=== PATIENT | female | born 1985 | race Caucasian/White ===

== ENCOUNTER 2018-05-26 10:29 | Emergency (ER) | payer OTHER ==
[2018-05-26 10:49] VITALS: BP 144/93; TEMP 99
[2018-05-26] MEDS ORDERED: NORCO 10-325 PO STA (11:08)
[2018-05-26] MEDS ORDERED: DECADRON 4 MG/ML SDV IM STA (11:08)
[2018-05-26 11:44] LABS: URINE PREGNANCY TEST NEGATIVE (NEGATIVE)
--- NOTE | 2018-05-26 12:01 | ED.PDOC ---
General ED Provider: Dr. BENEDICTO COLON Chief Complaint: Back Pain Stated Complaint: low back pain lumbar Time Seen by Physician: 10:30 (no trauma) Mode of Arrival: Walk-In Information Source: Patient Exam Limitations: No limitations Primary Care Provider: BERNA YING Nursing and Triage Documentation Reviewed and Agree: Yes Does patient meet sepsis criteria?: No System Inflammatory Response Syndrome: Not Applicable Sepsis Protocol: For patient's 13 years and over: Temp is 96.8 and below OR 101 and greater Pulse >90 BPM Resp >20/minute Acutely Altered Mental Status Are patient's symptoms suggestive of a new infection, such as: -Pneumonia -Skin, Soft Tissue -Endocarditis -UTI -Bone, Joint Infection -Implantable Device -Acute Abdominal Infection -Wound Infection -Meningitis -Blood Stream Catheter Infection -Unknown Musculoskeletal Complaint Exam - Back Pain Complaint/Exam Mechanism of Injury: Reports: No known trauma Onset/Duration: 1 day Symptoms Are: Still present Timing: Intermittent Episodes Lasting: Hours Initial Severity: Mild Current Severity: Mild Location: Reports: Discrete (lumbar) Character: Reports: Aching, Spasmodic, Stiffness Aggravating: Reports: Movements, Lifting, Bending, Walking Alleviating: Reports: Rest, Position Associated Signs and Symptoms: Denies: Swelling, Redness, Bruising, Fever, Weakness, Numbness, Tingling, Abdominal pain, Flank pain, Bladder incontinence, Bowel incontinence, Weight loss, Pain with weight bearing Related History: Reports: Similar episode TAD Risk Factors: Reports: None Cauda Equina Risk Factors: Reports: None Epidural Abcess Risk Factors: Reports: None Related Surgical History: Reports: None Focal Tenderness: No Paraspinal Muscle Tenderness: No Paraspinal Muscle Spasm: No Scoliosis: No Lordosis: No Kyphosis: No SLR Test: Right Negative, Left Negative Hip Motion Testing Pain: Right Negative, Left Negative Focal Weakness: Present: None Focal Sensory Loss: Present: None Gait: Present: Normal Differential Diagnoses: Strain, Sprain Review of Systems - Review Of Systems Constitutional: Reports: No symptoms Eyes: Reports: No symptoms Ears, Nose, Mouth, Throat: Reports: No symptoms Respiratory: Reports: No symptoms Cardiac: Reports: No symptoms GI: Reports: No symptoms : Reports: No symptoms Musculoskeletal: Reports: Back pain Skin: Reports: No symptoms Neurological: Reports: No symptoms Endocrine: Reports: No symptoms Hematologic/Lymphatic: Reports: No symptoms All Other Systems: Reviewed and Negative Past Medical History - Past Medical History Previously Healthy: Yes Endocrine: Reports: None Cardiovascular: Reports: None Respiratory: Reports: None Hematological: Reports: None Gastrointestinal: Reports: None Genitourinary: Reports: None Neuro/Psych: Reports: Depression Musculoskeletal: Reports: None Cancer: Reports: None Last Menstrual Period: 1 month - Surgical History General Surgical History: Reports: ( x w ), Tonsillectomy, Adenoidectomy, Other (PE tubes ) - Family History Family History: Reports: None - Social History Smoking Status: Current every day smoker, Heavy tobacco smoker Hx Substance Use: No Alcohol Screening: Occasionally Physical Exam - Physical Exam Appearance: Well-appearing, No pain distress, Well-nourished Eyes: [place], EOMI, Conjunctiva clear ENT: Ears normal, Nose normal, Oropharynx normal Respiratory: Airway patent, Breath sounds clear, Breath sounds equal, Respirations nonlabored Cardiovascular: RRR, Pulses normal, No rub, No murmur GI/: Soft, Nontender, No masses, Bowel sounds normal, No Organomegaly Musculoskeletal: Normal strength, ROM intact, No edema, No calf tenderness Skin: Warm, Dry, Normal color Neurological: Sensation intact, Motor intact, Reflexes intact, Cranial nerves intact, Alert, Oriented Psychiatric: Affect appropriate, Mood appropriate Interpretation - Radiology Interpretation Radiology Interpretation By: Radiologist Radiology Results: No acute changes Re-Evaluation - Re-Evaluation Time of Re-Evaluation: 11:00 Status: Unchanged Vital Signs Stable: Yes Pain Level: 3 Appearance: NAD Lungs: Clear Skin: Warm and Dry Neuro: Alert and Oriented X3 CV: RRR - Re-Evaluation Time of Re-Evaluation: 12:02 Status: Improved Vital Signs Stable: Yes Pain Level: 2 Appearance: NAD Skin: Warm and Dry Neuro: Alert and Oriented X3 CV: RRR Physician Notification - Case Discussed Physician Notified: pmd Time of Notification: 12:03 (will follow as out pt ) Critical Care Note - Critical Care Note Total Time (mins): 0 Course - Course Hematology/Chemistry: 05/26/18 11:05 Orders, Labs, Meds: Lab Review 05/26/18 05/26/18 05/26/18 11:05 11:25 11:25 WBC 8.53 RBC 4.63 Hgb 12.6 Hct 38.5 MCV 83.2 MCH 27.2 MCHC 32.7 RDW Coeff of Su 14.7 Plt Count 305 Immature Gran % (Auto) 0.1 Neut % (Auto) 64.0 Lymph % (Auto) 29.3 [place] % (Auto) 4.8 Eos % (Auto) 0.9 Baso % (Auto) 0.9 Immature Gran # (Auto) 0.0 Neut # (Auto) 5.5 Lymph # (Auto) 2.5 [place] # (Auto) 0.4 Eos # (Auto) 0.1 Baso # (Auto) 0.1 Urine Color Yellow Urine Clarity Clear Urine pH 7.5 Ur Specific [place] 1.020 Urine Protein Negative Urine Glucose (UA) Negative Urine Ketones Negative Urine Blood Negative Urine Nitrite Negative Urine Bilirubin Negative Urine Urobilinogen 1.0 Ur Leukocyte Esterase Trace Urine Microscopic WBC 2-5 Ur Squamous Epith Cells 30-50 Urine Bacteria Trace Urine Test Negative Orders Category Date Time Status CBC W/ AUTO DIFF Stat LAB 05/26/18 11:05 Completed COMPREHENSIVE METABOLIC PANEL Stat LAB 05/26/18 11:05 Received URINALYSIS C & S IF INDICATED Stat LAB 05/26/18 11:25 Completed URINE Stat LAB 05/26/18 11:25 Completed Dexamethasone 4 mg/ml Inj [Decadron 4 mg/ml Sdv] MEDS 05/26/18 11:08 Discontinued 8 mg IM ONCE STA Hydrocodone Bit/Acetaminophen [Graham 10-325] MEDS 05/26/18 11:08 Discontinued 1 tab PO ONCE STA CT LUMBAR SPINE W/O CONTRAST Stat RADS 05/26/18 11:08 Ordered Medications Discontinued Medications Generic Name Dose Route Start Last Admin Trade Name Freq PRN Reason Stop Dose Admin Hydrocodone Bitart/Acetaminophen 1 tab 05/26/18 11:08 Graham 10-325 PO 05/26/18 11:09 ONCE STA Dexamethasone Sodium Phosphate 8 mg 05/26/18 11:08 Decadron 4 Mg/Ml Sdv IM 05/26/18 11:09 ONCE STA Vital Signs: Temp Pulse Resp BP Pulse Ox 05/26/18 10:29 99.0 F 72 20 144/93 H 97 Departure - Departure Time of Disposition: 12:03 Disposition: HOME SELF-CARE Discharge Problem: Backache Low back pain Qualifiers: Chronicity: acute Back pain laterality: midline Sciatica presence: unspecified whether sciatica present Qualified Code(s): M54.5 - Low back pain Condition: Good Pt referred to PMD for follow-up: Yes IPMP verified?: No Additional Instructions: Please call your Family Physician as soon as possible to schedule a follow-up appointment. if you can urinate, or you have urine retention, cant make use of your legs or numbness around buttocks contact your MD and return [place]. Allergies/Adverse Reactions: Allergies No Known Allergies Allergy (Verified 05/26/18 10:41) Home Medications: Ambulatory Orders 1 [No Reported Medications] 05/26/18 Disposition Discussed With: Patient
--- NOTE | 2018-05-26 12:32 | CT ---
EXAM: CT lumbar spine without contrast. HISTORY: Back pain. COMPARISON: 09/01/2012. Abdominal CT 01/03/2014. TECHNIQUE: Multiple axial images of the lumbar spine were obtained without intravenous contrast. Im ages were reformatted in the sagittal and coronal planes. FINDINGS: The normal curvature and alignment are maintained. Vertebral body and intervertebral disc heights are normal. No fracture or subluxation is seen. Facet arthropathy causes mild neural fora irma narrowing at L4-5 and moderate neural foraminal narrowing at L5-S1. No significant central can al stenosis identified. Adjacent soft tissues are unremarkable. IMPRESSION: 1. No acute abnormality of the lumbar spine. 2. Lower lumbar degenerative changes as described.
== END 2018-05-26 13:10 | disposition home or self-care (01) ==
LOC: ED 10:29
DX: M54.5 Low back pain (principal); F17.210 Nicotine dependence, cigarettes, uncomplicated
CPT/HCPCS: 36415; 80053; 81001; 81025; 85025; 96372; 99283

== ENCOUNTER 2018-08-04 12:57 | Emergency (ER) ==
[2018-08-04 13:02] VITALS: BP 104/66; TEMP 97.4; BMI 44.6
--- NOTE | 2018-08-04 15:38 | ED.PDOC ---
General ED Provider: Dr. BENEDICTO COLON Chief Complaint: Stated Complaint: about 5 weeks has had vaginal bleeding typical of a regular period today without pain Time Seen by Physician: 13:00 Mode of Arrival: Walk-In Information Source: Patient Exam Limitations: No limitations Primary Care Provider: GUSTAVO ZAMUDIO Nursing and Triage Documentation Reviewed and Agree: Yes Does patient meet sepsis criteria?: No System Inflammatory Response Syndrome: Not Applicable Sepsis Protocol: For patient's 13 years and over: Temp is 96.8 and below OR 101 and greater Pulse >90 BPM Resp >20/minute Acutely Altered Mental Status Are patient's symptoms suggestive of a new infection, such as: -Pneumonia -Skin, Soft Tissue -Endocarditis -UTI -Bone, Joint Infection -Implantable Device -Acute Abdominal Infection -Wound Infection -Meningitis -Blood Stream Catheter Infection -Unknown Complaint Exam - UTI Female Complaint/Exam : 3 Para: 2 Hx Total # of Abortions (Spontaneous & Elective): 0 - Complaint/Exam Onset/Duration: today Symptoms Are: Resolved Timing: Intermittent Initial Severity: Mild Current Severity: None Location of Pain: Reports: None Character: Denies: Sharp, Colicky, Burning, Constant pressure, Dull, Cramping, Tearing, Dark urine, Cloudy urine, Bloody urine Aggravating: Reports: None Alleviating: Reports: None Associated Signs and Symptoms: Reports: Vaginal bleeding. Denies: Diaphoresis, Back pain, Fever, Hematuria, Dysuria, Constipation, Blood in stool, Rectal pain , Appetite change, Nausea, Vomiting, Decreased urine output, Increased urine frequency, Increased thirst, Decreased activity, Lethargy, Abdominal Pain, Bubble bath use, Vaginal discharge, Genital swelling, Genital blisters, Retained foreign body Ectopic Risk Factors: Reports: None Ovarian Torsion Risk Factors: Reports: None Surgical Obstruction Risk Factors: Reports: None RH Status: Unknown Related Surgical History: Reports: None Abdominal Findings: Present: None Differential Diagnoses: Other (vaginal bleed ) Review of Systems - Review Of Systems Constitutional: Reports: No symptoms Eyes: Reports: No symptoms Ears, Nose, Mouth, Throat: Reports: No symptoms Respiratory: Reports: No symptoms Cardiac: Reports: No symptoms GI: Reports: No symptoms : Reports: Other (VAGINAL BLEED) Musculoskeletal: Reports: No symptoms Skin: Reports: No symptoms Neurological: Reports: No symptoms Endocrine: Reports: No symptoms Hematologic/Lymphatic: Reports: No symptoms All Other Systems: Reviewed and Negative Past Medical History - Past Medical History Previously Healthy: Yes Endocrine: Reports: None Cardiovascular: Reports: None Respiratory: Reports: None Hematological: Reports: None Gastrointestinal: Reports: None Genitourinary: Reports: None Neuro/Psych: Reports: Depression Musculoskeletal: Reports: None Cancer: Reports: None Last Menstrual Period: Jun 23 - Surgical History General Surgical History: Reports: ( x w ), Tonsillectomy, Adenoidectomy, Other (PE tubes ) - Family History Family History: Reports: None - Social History Smoking Status: Current every day smoker Hx Substance Use: No Alcohol Screening: None - Immunizations Tetanus Shot up to Date: Yes Physical Exam - Physical Exam Appearance: Well-appearing, No pain distress, Well-nourished Eyes: [place], EOMI, Conjunctiva clear ENT: Ears normal, Nose normal, Oropharynx normal Respiratory: Airway patent, Breath sounds clear, Breath sounds equal, Respirations nonlabored Cardiovascular: RRR, Pulses normal, No rub, No murmur GI/: Soft, Nontender, No masses, Bowel sounds normal, No Organomegaly Musculoskeletal: Normal strength, ROM intact, No edema, No calf tenderness Skin: Warm, Dry, Normal color Neurological: Sensation intact, Motor intact, Reflexes intact, Cranial nerves intact, Alert, Oriented Psychiatric: Affect appropriate, Mood appropriate Critical Care Note - Critical Care Note Total Time (mins): 0 Course - Course Hematology/Chemistry: 08/04/18 14:20 08/04/18 14:20 Orders, Labs, Meds: Lab Review 08/04/18 08/04/18 08/04/18 14:20 14:20 14:20 WBC 7.89 RBC 4.63 Hgb 12.8 Hct 39.0 MCV 84.2 MCH 27.6 MCHC 32.8 RDW Coeff of Su 15.0 H Plt Count 273 Immature Gran % (Auto) 0.1 Neut % (Auto) 54.7 Lymph % (Auto) 33.1 [place] % (Auto) 8.9 Eos % (Auto) 2.4 Baso % (Auto) 0.8 Immature Gran # (Auto) 0.0 Neut # (Auto) 4.3 Lymph # (Auto) 2.6 [place] # (Auto) 0.7 Eos # (Auto) 0.2 Baso # (Auto) 0.1 PT 9.0 L INR 0.90 APTT 25.0 Sodium 140.1 Potassium 3.87 Chloride 105.8 Carbon Dioxide 27.2 Anion Gap 10.97 BUN 8.3 Creatinine 0.58 L Estimated GFR (MDRD) 120.00 BUN/Creatinine Ratio 14.31 Glucose 96.6 Calcium 9.13 Total Bilirubin 0.29 AST 25.5 ALT 42.3 H Alkaline Phosphatase 74.7 Total Protein 7.29 Albumin 4.23 Globulin 3.06 Albumin/Globulin Ratio 1.38 HCG, Quant 08/04/18 14:20 WBC RBC Hgb Hct MCV MCH MCHC RDW Coeff of Su Plt Count Immature Gran % (Auto) Neut % (Auto) Lymph % (Auto) [place] % (Auto) Eos % (Auto) Baso % (Auto) Immature Gran # (Auto) Neut # (Auto) Lymph # (Auto) [place] # (Auto) Eos # (Auto) Baso # (Auto) PT INR APTT Sodium Potassium Chloride Carbon Dioxide Anion Gap BUN Creatinine Estimated GFR (MDRD) BUN/Creatinine Ratio Glucose Calcium Total Bilirubin AST ALT Alkaline Phosphatase Total Protein Albumin Globulin Albumin/Globulin Ratio HCG, Quant 6060.200 Orders Category Date Time Status CBC W/ AUTO DIFF Stat LAB 08/04/18 14:20 Completed COMPREHENSIVE METABOLIC PANEL Stat LAB 08/04/18 14:20 Completed HCG,QUANTITATIVE Stat LAB 08/04/18 14:20 Completed PARTIAL THROMBOPLASTIN TIME Stat LAB 08/04/18 14:20 Completed PT WITH INR Stat LAB 08/04/18 14:20 Completed ULTRASOUND OB/TV [U/S OB/TV] Stat RADS 08/04/18 14:32 Ordered Vital Signs: Temp Pulse Resp BP Pulse Ox 08/04/18 12:57 97.4 F L 100 H 18 104/66 98 Departure - Departure Time of Disposition: 15:38 Disposition: HOME SELF-CARE Discharge Problem: Threatened Instructions: Miscarriage (ED), Threatened Miscarriage (ED) Condition: Good Pt referred to PMD for follow-up: Yes IPMP verified?: No Additional Instructions: Please call your Family Physician as soon as possible to schedule a follow-up appointment.please follow up with cinthia isaac or your MD . Allergies/Adverse Reactions: Allergies Bee, wasp Allergy (Severe, Uncoded 06/11/18 09:11) Swelling Patient had an epi pen in the past Home Medications: Ambulatory Orders 1 [No Reported Medications] 05/26/18
--- NOTE | 2018-08-04 15:57 | US ---
EXAM: Ultrasound OB HISTORY: Vaginal bleeding, . FINDINGS: OB ultrasound transvaginal. Transvaginal approach imaging was performed for improved reso lution and anatomic definition. Within thickened endometrium, there is an oval shaped fluid collection which could represent a gestat ional sac. A tiny echogenic focus along the internal wall of this collection could represent a yolk sac or early pole. No heart tones identified. There is a 2.6 x 2.5 x 3.4 cm myometrial mass which could represent a fibroid, this is questionable. The right ovary was not seen. The left ovary had normal size and general sonographic appearance. N o ascites was identified. IMPRESSION: 1. Questionable early intrauterine gestation. Recommend following Beta HCG measurements with follow -up ultrasound. 2. Possible uterine fibroid.
== END 2018-08-04 15:49 | disposition home or self-care (01) ==
LOC: ED 12:57
DX: O20.0 Threatened abortion (principal); F17.210 Nicotine dependence, cigarettes, uncomplicated
CPT/HCPCS: 36415; 80053; 84702; 85025; 85610; 85730; 99282